=== PATIENT | male | born 1970 | race Caucasian/White ===

== ENCOUNTER 2018-02-21 08:06 | Inpatient (IN) | payer OTHER ==
[~2018-02-21] VITALS: Ht 177.8 cm; Wt 81.6 kg
--- NOTE | 2018-02-21 13:25 | NUR ---
PRE-ADMISSION NOTE Received pt at intake. Pt is a 47 y/o M being admitted for Meth withdrawal and intermittent ETOH use. Pt is A/O x4, highly agitated, irritable, and anxious, restless, fidgety, poor eye contact. Pt is the primary source of info, Pt is self ambulatory without assistance. Initial VS were BP: 148/97, Hr: 83, RR: 18, O2sat 99%. Pt reports having allergy to Cipro, no PMH, no psych hx. SUBSTANCE USE HX: 1. METH 2G daily for 2 years. Last use today 1000 and before that was Tuesday02/17/18 1000. Pt first used at age 13. 2. ETOH intermittent use - 3-4 beers and sometimes 2/5th of vodka. Last use 02/17/18 and drank 2 days straight. First used at age 13. 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 Pt reports being at [facility] for 2 days and left yesterday. Pt report being admitted to ER the first night, pt states, "they gave me too much Valium and made me OD on it the first night I was there."
[2018-02-21] MEDS ORDERED: MIRALAX 17 GM POWD.PACK PO PRN (13:45)
[2018-02-21] MEDS ORDERED: THIAMINE HCL 200 MG/2 ML VIAL IM ONE (13:45)
[2018-02-21] MEDS ORDERED: MAGNESIUM HYDROXIDE 30 ML LIQUID UDC PO PRN (13:45)
[2018-02-21] MEDS ORDERED: ACETAMINOPHEN 325 MG TABLET PO PRN (13:45)
[2018-02-21] MEDS ORDERED: IBUPROFEN 600 MG TABLET PO PRN (13:45)
[2018-02-21] MEDS ORDERED: ONDANSETRON 4 MG/2 ML VIAL IM PRN (13:45)
[2018-02-21] MEDS ORDERED: LOPERAMIDE HCL 2 MG CAPSULE PO PRN ×2 (13:45)
[2018-02-21] MEDS ORDERED: MAG HYDROX/AL HYDROX/SIMETH 30 ML LIQUID UDC PO PRN (13:45)
[2018-02-21] MEDS ORDERED: diphenhydrAMINE 50 MG CAPSULE PO PRN (13:45)
[2018-02-21] MEDS ORDERED: ONDANSETRON ODT 4 MG TAB.RAPDIS SL PRN (13:45)
[2018-02-21 13:58] LABS: *AMPHETAMINE, URINE NEGATIVE (NEGATIVE); *BARBITURATE, URINE NEGATIVE (NEGATIVE); *CANNABINOID, URINE NEGATIVE (NEGATIVE); *COCCAINE, URINE NEGATIVE (NEGATIVE); *OPIATE, URINE NEGATIVE (NEGATIVE); *PHENCYCLIDINE SCREEN,URINE NEGATIVE (NEGATIVE)
[2018-02-21] MEDS ORDERED: LORAZEPAM 2 MG/1 ML VIAL IM PRN (15:45)
[2018-02-21] MEDS: LORAZEPAM 1 MG TABLET PO PRN ×3 (15:54→22:41)
[2018-02-21 16:00] VITALS: BP 150/93
--- NOTE | 2018-02-21 16:55 | NUR ---
REASSESSMENT Pt is quietly eating a sandwich in room and watching tv. Will monitor and reassess.
--- NOTE | 2018-02-21 16:55 | NUR ---
REASSESSMENT Pt is in room quietly eating a sandwich and watching tv. Will monitor and reassess.
[2018-02-21 17:51] LABS: BASOPHILS # (AUTO) 0.1 K/uL (0.0-8.0); BASOPHILS % (AUTO) 1.2 % (0.0-2.0); EOSINOPHILS # (AUTO) 0.3 K/uL (0.0-0.7); EOSINOPHILS % (AUTO) 3.8 % (0.0-7.0); HEMATOCRIT 45.8 % (36.7-47.1); HEMOGLOBIN 15.1 g/dL (12.5-16.3); LYMPHOCYTES # (AUTO) 1.8 K/uL (20.0-40.0); MEAN CORPUSCULAR HEMOGLOBIN 29.3 uug (23.8-33.4); MEAN CORPUSCULAR HGB CONC 33 g/dL (32.5-36.3); MEAN CORPUSCULAR VOLUME 88.9 fL (73.0-96.2); MONOCYTES # (AUTO) 0.6 K/uL (2.0-10.0); MONOCYTES % (AUTO) 7.9 % (0.0-11.0); NEUTROPHILS # (AUTO) 4.5 K/uL (1.8-8.9); NEUTROPHILS % (AUTO) 62.1 % (38.5-71.5); PLATELET COUNT (AUTO) 238 K/uL (152-348); RED BLOOD CELL COUNT(AUTO) 5.15 MIL/uL (4.06-5.63); WHITE BLOOD COUNT (AUTO) 7.3 K/uL (3.6-10.2)
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
[2018-02-21 18:10] LABS: ETHANOL < 3 MG/DL (0-0)
[2018-02-21 18:35] LABS: ALANINE AMINOTRANSFERASE 24 U/L (16-63); ALKALINE PHOSPHATASE 81 U/L (50-136); AMYLASE 31 U/L (25-115); ASPARTATE AMINOTRANSFERASE 17 U/L (15-37); BILIRUBIN,TOTAL 0.2 mg/dL (0.2-1.0); CARBON DIOXIDE 25 mmol/L (21-32); CHLORIDE 104 mmol/L (98-107); CREATININE 0.9 mg/dL (0.6-1.3); GLUCOSE 136 mg/dL (74-106); LIPASE 155 U/L (73-393); MAGNESIUM 1.8 mg/dL (1.8-2.4); POTASSIUM 3.7 mmol/L (3.5-5.1); TOTAL PROTEIN, SERUM 6.9 g/dL (6.4-8.2); UREA NITROGEN, BLOOD 12 mg/dL (7-18)
--- NOTE | 2018-02-21 19:05 | NUR ---
BEHAVIORAL NOTE Pt is angry, upset, aggressively pushed the table in front of him in the room nd making loud noises due to being unable to smoke. Pt states, "they told me I was able to smoke whenever I want. They lied to me. I hate when they keep telling me one thing and doing another." Tried to redirect pt and reassure pt that he will be able to smoke in a few minutes after shift change.
--- NOTE | 2018-02-21 19:30 | NUR ---
Start of Shift Notes Received a 47 y/o male px, admitted for medically supervised withdrawal from ETOH and methamphetamine. Px has PRN Ativan for agitation. During the rounds at 1930, px appears very agitated, anxious, angry. Px is pacing inside his room. Px stated "Everybody here is lying to me. Fuck them! They told me I can smoke anytime and now, I can't? Why? I requested a phone call 2 hours ago and until now, I am still waiting. What the fuck is that? I want to talk to my . I am really angry man." Px was redirected and explained the process of call requests and smoking in a calm way. Px was reassured. Bed on low position, side rail up on left side but refused to put up the side rail on right side. Call light within reach. We'll continue to monitor.
--- NOTE | 2018-02-21 19:32 | NUR ---
PRN Ativan 2 mg po prn given for anxiety agitation. Pt reports he has 10/10 anxiety and is highly agitated has facial flushing, shaking, sweating. Will monitor and reassess. Addendum: 02/21/18 at 1934 by HUBER FUNEZ RN Correct time 1554.
--- NOTE | 2018-02-21 19:37 | NUR ---
END OF SHIFT ATIVAN 1 MG po prn given for anxiety and agitation. Pt has been restlessly moving around, highly agitated and anxious, C/O sweating and has facial flushing. Pt stated he angry and upset that he cannot go smoke and has to wait. Pt states he is angry that someone had lied to him that he can go smoke whenever he wanted. Tried to redirect patient however pt started to move around aggressively, pushed the table very loudly in front of him. Pt ate 100% of meal, fluid intake 1000 ml, voided x2 bm 0. Safety measures in place. Endorsement given to night time nanny nurse.
--- NOTE | 2018-02-21 19:40 | NUR ---
Behavioral Note During the rounds, px appears angry, anxious, depressed with good eye contact. Px is agitated and restless. Px is pacing inside his room. Px stated "Everybody here is lying to me. Fuck them! They told me I can smoke anytime and now, I can't? Why? I requested a phone call 2 hours ago and until now, I am still waiting. What the fuck is that? I want to talk to my . I am really angry man." Px was redirected calmly. We'll continue to monitor.
--- NOTE | 2018-02-21 19:54 | NUR ---
PRN Ativan and Tylenol Px received Ativan 1 mg PO for agitation and Tylenol 650 mg PO for H/A of 04/10. We'll continue to monitor.
[2018-02-21 20:00] VITALS: BP 138/89
--- NOTE | 2018-02-21 21:00 | NUR ---
Reassessment of anxiety and H/A Px stated that his H/A is ok now and he doesn't need additional pain reliever. Px is still agitated. Px We'll continue to monitor.
[2018-02-21] MEDS ORDERED: TRAZODONE 50 MG TABLET PO PRN (21:45)
--- NOTE | 2018-02-21 22:41 | NUR ---
PRN Desyrel and Ativan Px received Desyrel 50 mg PO for insomnia and Ativan 1 mg PO for agitation. We'll continue to monitor.
--- NOTE | 2018-02-21 23:00 | NUR ---
Px refused for VS Px stated "I don't want to be bothered for VS tonight." We'll continue to monitor.
--- NOTE | 2018-02-21 23:45 | NUR ---
Reassessment of anxiety Reassessment was deferred due to the px is already asleep. We'll continue to monitor.
--- NOTE | 2018-02-22 07:05 | NUR ---
End of Shift Notes During the shift, tesha was angry, agitated, restless due to that the px didn't received approval for his phone call and didn't get the chance to smoke cigarettes at the time of shift change. Px was redirected calmly. At 4, px received Tylenol 650 mg PO for H/A and Ativan 1 mg PO for agitation. Tylenol was effective. At 2240, px received Desyrel 50 mg PO and Ativan 1 mg PO for agitation and anxiety. Desyrel was effective. Px refused VS taking for 0000 and 0400 if he is sleeping. Px oral intake is 850 ml, voided 2x, without BM. At 0630, px is asleep on bed in left side lying position. Bed on low position, side rail up on left side but refused to put up the side rail on right side. Call light within reach. We'll continue to monitor. Px is endorsed to AM shift.
--- NOTE | 2018-02-22 07:08 | NUR ---
Start of Shift Report received from night time babysitter nurse Pt is a 47 y/o male, admitted for medically supervised withdrawal from ETOH and methamphetamine. Per night time babysitter nurse COWS and CIWAs were not required. Pt is currently not on a taper but has PRN medications in case of withdrawal. Upon start of shift pt noted laying in bed with eyes closed even non-labored breathing. When greeted pt stated "When are they going to pass out the cigarettes an d what about my call that I have to make?" Reoriented pt and reinforced the times he can make a call. Pts room appears unorganized and messy pt has his clothes and candy wrappers laying on the floor. Pt appears concerned regarding his cigarettes and the call. During assessment pt is A&Ox4, lung sounds clear bilaterally. Radial pulse is present regular. Abdomen soft non-tender. Pts skin warm and intact, pt denies any pain at the moment. Encouraged pt to drink plenty of fluids to help facilitate detox. Pt received PRN Ativan 1mg for agitation which was effective as well as PRN Tylenol 650mg for a headache which was also effective per night time babysitter nurse. Pt slept a total of 8 hours last night. Bed in lowest position, side rails upx2, Call light functioning and within reach, all needs attended and met. will continue to monitor.
[2018-02-22 08:00] VITALS: BP 130/84
[2018-02-22] MEDS ORDERED: THIAMINE HCL 100 MG TABLET PO SCH (09:00)
[2018-02-22] MEDS ORDERED: FOLIC ACID 1 MG TABLET PO SCH (09:00)
[2018-02-22] MEDS ORDERED: TUBERCULIN,PURIF.PROT.DERIV. 5 TU/0.1 ML TEST ID ONE (09:00)
[2018-02-22] MEDS ORDERED: MULTIVITAMINS,THERAPEUTIC TABLET PO SCH (09:00)
[2018-02-22 12:00] VITALS: BP 128/86
--- NOTE | 2018-02-22 14:55 | NUR ---
Discharge Note Patient was discharged from [facility], patient was provided with all the discharge paperwork. All paperwork explained to patient, Patient verbalized understanding, Patient is A&Ox4 vitals WNL, pt denies any SI/HI. All belongings returned to patient. Patient did not have any home medications. Patient left facility at 1452 02/22/18.
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
[2018-02-23 12:08] LABS: HEPATITIS B SURFACE AG Negative (Negative)
== END 2018-02-22 14:52 | disposition other institution (70) | DRG 897 ==
LOC: SRC 12:17
PROVIDERS: ADMIT Family Medicine Addiction Medicine; ATTEND Family Medicine Addiction Medicine
PROC: HZ2ZZZZ Detoxification Services for Substance Abuse Treatment (ICD-10-PCS; principal; 2018-02-21)
DX: F10.230 Alcohol dependence with withdrawal, uncomplicated (principal); F15.23 Other stimulant dependence with withdrawal; Y90.9 Presence of alcohol in blood, level not specified; R45.1 Restlessness and agitation; Z72.0 Tobacco use; Z81.3 Family history of other psychoactive substance abuse and dependence; F41.9 Anxiety disorder, unspecified
CPT/HCPCS: 36415; 80307; 83690; 83735; 85025; 86592; 86705; 86803; 87340; 87806; A4663; G0480; J3411